=== PATIENT | male | born 1985 | race American Indian/Alaskan Native ===

== ENCOUNTER 2016-08-31 14:23 | Emergency (ER) | payer OTHER ==
[2016-08-31] MEDS ORDERED: CATAPRES PO ONE ×2 (15:38→20:24)
[2016-08-31 16:20] LABS: Basophils % (Auto) 0.9 % (0.0-1.8); Eosinophils % (Auto) 3.4 % (0.0-4.3); Hematocrit 40.5 % (35.5-45.6); Hemoglobin 13.5 gm/dl (11.8-15.2); Mean Corpuscular HGB Conc 33 % (32-34); Mean Corpuscular Hemoglobin 28 pg (28-32); Mean Corpuscular Volume 85 fl (84-94); Platelet Count 379 K/mm3 (140-440); Red Blood Count 4.76 M/mm3 (3.65-5.03); Red Cell Distribution Width 13.3 % (13.2-15.2); White Blood Count 11.9 K/mm3 (4.5-11.0)
[2016-08-31 16:32] LABS: Anion Gap 19 mmol/L; Blood Urea Nitrogen 8 mg/dL (9-20); Calcium 8.7 mg/dL (8.4-10.2); Carbon Dioxide 26 mmol/L (22-30); Glucose 134 mg/dL (75-100); Potassium 3.8 mmol/L (3.6-5.0); Sodium 142 mmol/L (137-145)
--- NOTE | 2016-08-31 16:52 | Emergency Department Report ---
Entered by JIMMY GARCES, acting as scribe for BALDOMERO GOFF PA. Chief Complaint: High BP Stated Complaint: BP HIGH Time Seen by Provider: 08/31/16 15:32 - HPI History of Present Illness: 31 year old male with no significant PMHx presents to the ED for elevated HTN due to tooth extraction easier today. Patients denies headache blurry vision, SOB, chest pain, nausea, vomiting, and dizziness. Patient reports no PMHx of HTN. NKDA. - ROS Review of Systems: Reports tooth ache Denies headache blurry vision, SOB, chest pain, nausea, vomiting, and dizziness. Reports no PMHx of HTN - Exam Vital Signs: Vital Signs 08/31/16 15:14 Temperature 98.5 F Pulse Rate 102 H Respiratory 20 Rate Blood Pressure 164/123 O2 Sat by Pulse 94 Oximetry Physical Exam: GENERAL: Patient is alert and oriented x 3. No apparent distress, normal gait, atraumatic. HEAD: Head is normocephalic and atraumatic. LUNGS: Symmetrical with respiration. No wheezing, rales or crackles, CTAB. HEART: Regular rate and rhythm with normal S1/S2 present. No murmurs, rubs, or gallops. CHEST: No TTP. MSE screening note: Focused history and physical exam performed. Due to findings the following was ordered: BMP, CBC, Troponin was ordered for patient. ED Disposition for MSE Condition: Stable This documentation as recorded by the scribe,JIMMY GARCES,accurately reflects the service I personally performed and the decisions made by ,BALDOMERO GOFF PA.
[2016-08-31] MEDS ORDERED: NACL 0.9% 1000 ML 1,000 ML IV ONE (20:24)
--- NOTE | 2016-08-31 20:33 | Emergency Department Report ---
ED General Adult HPI - General Chief complaint: High BP Stated complaint: BP HIGH Time Seen by Provider: 08/31/16 15:32 Source: patient Mode of arrival: Ambulatory Limitations: No Limitations - History of Present Illness Initial comments: This is a 31-year-old male A/Ox3 well-nourished with nontoxic or ill in appearance that presents to the ED with a complaint of high blood pressure. Patient stated he went to a dentist office today to get his teeth extracted and before procedure the dentist took blood pressure that was elevated and the dentist could not perform the procedure and referred to come to the emergency room. Today he is presenting here with elevated blood pressure. Patient denies any symptoms of blurry vision, headache, chest pain, shortness of breath , blurry vision, visual changes, dizziness, dysuria, polyuria, stiff neck, numbness, tingling, abdominal pain, nausea or vomiting. Patient states he is asymptomatic. Patient states he does have a primary care doctor that he sees on a regular basis but denies being diagnosed of hypertension. Patient denies any allergies. Denies past medical history. -: Gradual, days(s) (1) Severity scale (0 -10): 0 Associated Symptoms: denies other symptoms. denies: confusion, cough, diaphoresis, fever/chills, headaches, loss of appetite, malaise, nausea/vomiting , rash, seizure, shortness of breath, syncope, weakness Treatments Prior to Arrival: none - Related Data Previous Rx's Medication Instructions Recorded Last Taken Type Amoxicillin/K Clav Tab [Augmentin 1 tab PO Q12HR #20 tab 08/31/16 Unknown Rx 875 mg] Allergies Allergy/AdvReac Type Severity Reaction Status Date / Time No Known Allergies Allergy Unverified 08/31/16 15:19 ED Review of Systems ROS: Stated complaint: BP HIGH Other details as noted in HPI Constitutional: denies: chills, fever Eyes: denies: eye pain, eye discharge, vision change ENT: denies: ear pain, throat pain Respiratory: denies: cough, shortness of breath, wheezing Cardiovascular: denies: chest pain, palpitations Endocrine: no symptoms reported Gastrointestinal: denies: abdominal pain, nausea, diarrhea Genitourinary: denies: urgency, dysuria Musculoskeletal: denies: back pain, joint swelling, arthralgia Skin: denies: rash, lesions Neurological: denies: headache, weakness, paresthesias Psychiatric: denies: anxiety, depression Hematological/Lymphatic: denies: easy bleeding, easy bruising ED Past Medical Hx - Past Medical History Previous Medical History?: No - Surgical History Past Surgical History?: Yes Additional Surgical History: Frnasisco bladder - Social History Smoking Status: Never Smoker Substance Use Type: None - Medications Home Medications: Home Medications Medication Instructions Recorded Confirmed Last Taken Type Amoxicillin/K Clav Tab [Augmentin 1 tab PO Q12HR #20 tab 08/31/16 Unknown Rx 875 mg] ED Physical Exam - General Limitations: No Limitations General appearance: alert, in no apparent distress - Head Head exam: Present: atraumatic, normocephalic, normal inspection - Eye Eye exam: Present: normal appearance, PERRL, EOMI. Absent: scleral icterus, conjunctival injection, nystagmus, periorbital swelling, periorbital tenderness Pupils: Present: normal accommodation - ENT ENT exam: Present: normal exam, normal orophraynx, mucous membranes moist, TM's normal bilaterally, normal external ear exam - Neck Neck exam: Present: normal inspection, full ROM. Absent: tenderness, meningismus, lymphadenopathy, thyromegaly - Respiratory Respiratory exam: Present: normal lung sounds bilaterally. Absent: respiratory distress, wheezes, rales, rhonchi, stridor, chest wall tenderness, accessory muscle use, decreased breath sounds, prolonged expiratory - Cardiovascular Cardiovascular Exam: Present: regular rate, normal rhythm, normal heart sounds. Absent: bradycardia, tachycardia, irregular rhythm, systolic murmur, diastolic murmur, rubs, gallop - GI/Abdominal GI/Abdominal exam: Present: soft, normal bowel sounds. Absent: distended, tenderness, guarding, rebound, rigid, diminished bowel sounds - Rectal Rectal exam: Present: deferred - Extremities Exam Extremities exam: Present: normal inspection, full ROM, normal capillary refill. Absent: tenderness, pedal edema, joint swelling, calf tenderness - Back Exam Back exam: Present: normal inspection, full ROM. Absent: tenderness, CVA tenderness (R), CVA tenderness (L), muscle spasm, paraspinal tenderness, vertebral tenderness, rash noted - Neurological Exam Neurological exam: Present: alert, oriented X3, CN II-XII intact, normal gait, reflexes normal - Psychiatric Psychiatric exam: Present: normal affect, normal mood - Skin Skin exam: Present: warm, dry, intact, normal color. Absent: rash ED Course Vital Signs 08/31/16 08/31/16 08/31/16 15:14 17:45 18:32 Temperature 98.5 F Pulse Rate 102 H 90 93 H Respiratory 20 20 Rate Blood Pressure 164/123 152/97 Blood Pressure 162/108 [Left] O2 Sat by Pulse 94 Oximetry 08/31/16 08/31/16 20:12 20:34 Temperature Pulse Rate 94 H 90 Respiratory 18 Rate Blood Pressure 149/104 Blood Pressure 160/104 [Left] O2 Sat by Pulse 98 Oximetry - Reevaluation(s) Reevaluation #1: 08/31/16 20:34 Patient is talking in full sentences with no signs of distress noted. ED Medical Decision Making - Lab Data Result diagrams: 08/31/16 21:05 08/31/16 15:49 - Medical Decision Making Ed course: This is a 31-year-old male that presents with evaluation of high blood pressure 1- patient was examined by myself. CBC, BMP, trop, EKG, has been obtained. Patient received catapres 0.2mg in the ED which decreased his BP. Patient denies any dizziness or CP at d/c. 2- Patient was instructed to strictly follow-up with his primary care doctor within 24 hours for evaluation of his high blood pressure. 3- at time time of discharge, the patient does not seem toxic or ill in appearance. No acute signs of distress noted. Patient agrees to discharge treatment plan of care. No further questions noted by the patient. 4- patient also received NS 1000 ml in the ED and repeat of CBC and is elvated. Patient stated has an infection that was dx by dentist and needed a procedure today but canceled due to high blood pressure. 5- patient denies receiving any antibiotics from a dentist. She'll be treated with Augmentin for the infected tooth. Critical care attestation.: If time is entered above; I have spent that time in minutes in the direct care of this critically ill patient, excluding procedure time. ED Disposition Clinical Impression: High blood pressure Qualifiers: Hypertension type: unspecified secondary hypertension Qualified Code(s): I15.9 - Secondary hypertension, unspecified Disposition: DC-01 TO HOME OR SELFCARE Is pt being admited?: No Does the pt Need Aspirin: No Condition: Stable Instructions: Hypertension (ED) Additional Instructions: Strictly follow-up with your primary care doctor within 24 hours for evaluation of his high blood pressure. Take courses of antibiotic that was prescribed to. Prescriptions: Amoxicillin/K Clav Tab [Augmentin 875 mg] 1 tab PO Q12HR #20 tab Referrals: EUNICE BAINS JR, MD [Staff Physician] - 3-5 Days [facility] [Outside] - 3-5 Days [facility] [Outside] - 3-5 Days PRIMARY CARE, [Primary Care Provider] - 24 Hours GUERA LUNA MD [Staff Physician] - 24 Hours Forms: Work/School Release Form(ED)
[2016-08-31 20:59] VITALS: BP 149/104
[2016-08-31 21:31] LABS: Basophils % (Auto) 0.9 % (0.0-1.8); Eosinophils % (Auto) 2.7 % (0.0-4.3); Hemoglobin 13.6 gm/dl (11.8-15.2); Mean Corpuscular HGB Conc 33 % (32-34); Mean Corpuscular Hemoglobin 28 pg (28-32); Mean Corpuscular Volume 85 fl (84-94); Platelet Count 397 K/mm3 (140-440); Red Blood Count 4.84 M/mm3 (3.65-5.03); Red Cell Distribution Width 13.4 % (13.2-15.2); White Blood Count 13.2 K/mm3 (4.5-11.0)
== END 2016-08-31 22:34 | disposition home or self-care (01) ==
LOC: ED 14:23
DX: I10 Essential (primary) hypertension (principal)
CPT/HCPCS: 36415; 80048; 84484; 85025; 93005; 93010; 96360; 99283; J7030